=== PATIENT | male | born 1985 | race Caucasian/White ===

== ENCOUNTER 2018-05-06 10:10 | Day surgery (SDC) | payer BC ==
[~2018-05-06] VITALS: Ht 182.9 cm; Wt 83.4 kg
[~2018-05-06 10:10] MED LIST: BUPIVACAINE/PF 0.25% ONE; EPINEPHRINE 1 MG/ML, 1ML ONE; RESCUE INHALER PO
[2018-05-06] MEDS ORDERED: GABAPENTIN 300 MG CAPSULE ONE (10:54)
[2018-05-06] MEDS ORDERED: ONDANSETRON ODT 8 MG ONE (10:55)
[2018-05-06] MEDS ORDERED: FAMOTIDINE 20 MG TABLET ONE (10:55)
[2018-05-06] MEDS ORDERED: ACETAMINOPHEN 500 MG TABLET ONE (10:57)
[2018-05-06] MEDS ORDERED: ONDANSETRON 8 MG TABLET PO ONE (11:00)
[2018-05-06] MEDS ORDERED: ACETAMINOPHEN 500 MG TABLET PO ONE (11:00)
[2018-05-06] MEDS ORDERED: PHENYLEPHRINE 10 MG/ML ONE (11:09)
[2018-05-06] MEDS ORDERED: CEFAZOLIN 1,000 MG ONE (11:09)
[2018-05-06] MEDS ORDERED: ONDANSETRON 2MG/ML, 2ML ONE (11:09)
[2018-05-06] MEDS ORDERED: PROPOFOL 10 MG/ML, 20ML ONE (11:09)
[2018-05-06] MEDS ORDERED: DEXAMETHASONE 4 MG/ML, 1ML ONE (11:09)
[2018-05-06] MEDS ORDERED: ROCURONIUM 10 MG/ML,10ML ONE (11:09)
[2018-05-06] MEDS ORDERED: SUCCINYLCHOLINE 20 MG/ML, 10ML ONE (11:09)
[2018-05-06] MEDS ORDERED: FENTANYL PF 100 MCG/2ML ONE ×3 (11:28→13:30)
[2018-05-06] MEDS ORDERED: MIDAZOLAM 1 MG/ML, 2ML ONE (11:28)
[2018-05-06] MEDS ORDERED: GABAPENTIN 300 MG CAPSULE PO ONE (11:30)
[2018-05-06 12:51] VITALS: BP 110/73
[2018-05-06] MEDS ORDERED: OXYcodone 5 MG/5 ML ORAL.SOL UDC ONE (12:51)
[2018-05-06] MEDS: FENTANYL PF 100 MCG/2ML IV PRN ×5 (12:55→13:52)
[2018-05-06] MEDS ORDERED: MEPERIDINE/PF 25MG/ML,1ML ONE (12:59)
[2018-05-06] MEDS ORDERED: MEPERIDINE/PF 25MG/0.5ML IVPush PRN (13:00)
[2018-05-06] MEDS ORDERED: ONDANSETRON ODT 8 MG PO PRN (13:00)
[2018-05-06] MEDS ORDERED: OXYcodone 5 MG/5 ML ORAL.SOL UDC PO PRN (13:00)
[2018-05-06] MEDS ORDERED: HYDROmorphone 2 MG/ML, 1ML IVPush PRN (13:00)
[2018-05-06] MEDS ORDERED: LORazepam 2 MG/ML, 1ML IVPush PRN (13:00)
[2018-05-06] MEDS ORDERED: ONDANSETRON 2MG/ML, 2ML IV PRN (13:00)
[2018-05-06] MEDS ORDERED: PROMETHAZINE 25 MG/ML, 1ML IV PRN (13:00)
[2018-05-06] MEDS ORDERED: LORazepam 2 MG/ML, 1ML ONE (13:30)
== END 2018-05-06 17:00 | disposition home or self-care (01) ==
LOC: OUT 10:10
PROVIDERS: ATTEND Orthopaedic Surgery
DX: S43.431A Superior glenoid labrum lesion of right shoulder, initial encounter (principal); M75.111 Incomplete rotator cuff tear or rupture of right shoulder, not specified as traumatic; M19.011 Primary osteoarthritis, right shoulder; M75.41 Impingement syndrome of right shoulder; M75.51 Bursitis of right shoulder; Y93.89 Activity, other specified; Y92.89 Other specified places as the place of occurrence of the external cause; Y99.8 Other external cause status; Z88.0 Allergy status to penicillin; Z72.89 Other problems related to lifestyle; X58.XXXA Exposure to other specified factors, initial encounter; Z79.899 Other long term (current) drug therapy
CPT/HCPCS: 29823; 29824; 29826; 29827; 64415; 82962; C1713; J0330; J0690; J1100; J2060; J2175; J2250; J2370; J2405; J2704; J3010; J3490; J0171